=== PATIENT | female | born 1995 | race Hispanic/Latino ===

== ENCOUNTER 2019-12-24 19:11 | Emergency (ER) | payer SELFPAY ==
--- NOTE | 2019-12-24 20:45 | ER ---
[facility] Name: Rosenda Wilburn Age: 24 yrs Sex: Female : 1995 Arrival Date: 12/24/2019 Time: 19:21 Bed DIS1 Private MD: Diagnosis: Influenza due to identified novel influenza A virus Presentation: 12/23 19:26 Chief complaint: Spouse and/or significant other states: Fever and sore throat x 2 ca1 days. Daughter was positive with FLU. Pt is 9-10 wks. Coronavirus screen: The patient has NOT traveled to [place] in the past 14 days. The patient has NOT had contact with known and/or suspected case of Coronavirus. Ebola Screen: Patient negative for fever greater than or equal to 101.5 degrees Fahrenheit, and additional compatible Ebola Virus Disease symptoms Patient denies exposure to infectious person. Patient denies travel to an Ebola-affected area in the 21 days before illness onset. No symptoms or risks identified at this time. Initial Sepsis Screen: Does the patient meet any 2 criteria? No. Patient's initial sepsis screen is negative. Does the patient have a suspected source of infection? No. Patient's initial sepsis screen is negative. Risk Assessment: Do you want to hurt yourself or someone else? Patient reports no desire to harm self or others. Onset of symptoms was December 24, 2019. 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 - Social history:: Smoking status: Patient denies any tobacco usage or history of. - Family history:: not pertinent. - Hospitalizations: : No recent hospitalization is reported. Screenin:35 Abuse screen: Denies threats or abuse. Denies injuries from another. Nutritional rr5 screening: No deficits noted. Tuberculosis screening: No symptoms or risk factors identified. Fall Risk None identified. Total Cooper Fall Scale indicates No Risk (0-24 pts). Assessment: 19:35 General: Appears in no apparent distress. comfortable, Behavior is calm, cooperative, rr5 appropriate for age, Reports fever for. 19:35 Pain: Complains of pain in throat Pain does not radiate. Pain currently is 5 out of 10 rr5 on a pain scale. Quality of pain is described as aching, Pain began gradually, Is intermittent. Neuro: Level of Consciousness is awake, alert, obeys commands, Oriented to person, place, time, situation. Cardiovascular: Capillary refill < 3 seconds Patient's skin is warm and dry. Respiratory: Reports cough that is flu symptoms Airway is patent Respiratory effort is even, unlabored, Respiratory pattern is regular, symmetrical. GI: No signs and/or symptoms were reported involving the gastrointestinal system. : No signs and/or symptoms were reported regarding the genitourinary system. EENT: Throat is reddened with gag reflex present. Derm: Skin is intact, is healthy with good turgor, Skin temperature is warm. Musculoskeletal: Circulation, motion, and sensation intact. Capillary refill < 3 seconds. 20:34 Reassessment: Patient appears in no apparent distress at this time. Patient is alert, rr5 oriented x 3, equal unlabored respirations, skin warm/dry/pink. awaiting for flu result. 21:05 Reassessment: Patient appears in no apparent distress at this time. Patient is alert, rr5 oriented x 3, equal unlabored respirations, skin warm/dry/pink. discharge instruction given and explained without complaints made. Vital Signs: 19:26 BP 119 / 70; Pulse 120; Resp 16 S; Temp 98.8; Pulse Ox 98% on NC; Weight 62.14 kg (R); ca1 Height 5 ft. (152.40 cm) (R); 20:55 BP 115 / 75; Pulse 114; Resp 18; Temp 100.4; Pulse Ox 98% on R/A; rr5 19:26 Body Mass Index 26.76 (62.14 kg, 152.40 cm) ca1 ED Course: 19:21 Patient arrived in ED. jg7 19:31 Triage completed. ca1 19:33 Arm band placed on right wrist. ca1 19:35 Patient has correct armband on for positive identification. Bed in low position. Call rr5 light in reach. 19:47 Jalil Riley MD is Attending Physician. rn 19:56 Anthony Gauthier, RN is Primary Nurse. rr5 21:06 No provider procedures requiring assistance completed. Patient did not have IV access rr5 during this emergency room visit. Administered Medications: 20:55 Drug: Tylenol 650 mg Route: PO; rr5 21:08 Follow up: Response: No adverse reaction; Medication administered at discharge. rr5 Outcome: 20:45 Discharge ordered by . rn 21:06 Discharged to home ambulatory, with family. rr5 21:06 Condition: stable 21:06 Discharge instructions given to patient, family, Instructed on discharge instructions, follow up and referral plans. medication usage, Demonstrated understanding of instructions, Prescriptions given X 1. 21:08 Patient left the ED. rr5 Signatures: Jalil Riley MD MD rn Roque, Raymond, RN RN rr5 Joie Pennington RN RN Merry Montalvo jg7
--- NOTE | 2019-12-24 20:45 | EDPHYS ---
Physician Documentation [facility] Name: Rosenda Wilburn Age: 24 yrs Sex: Female : 1995 Arrival Date: 12/24/2019 Time: 19:21 Bed DIS1 Private MD: ED Physician Jalil Riley HPI: 12/23 19:53 This 24 yrs old Female presents to ER via Ambulatory with complaints of Flu rn Symptoms. 19:53 The patient or guardian reports cough, flu symptoms. Onset: The symptoms/episode rn began/occurred yesterday. Severity of symptoms: At their worst the symptoms were mild, in the emergency department the symptoms are unchanged. Modifying factors: The symptoms are alleviated by nothing, the symptoms are aggravated by nothing. Associated signs and symptoms: Pertinent positives: fever, rhinorrhea, sore throat. The patient has not experienced similar symptoms in the past. The patient has not recently seen a physician. Reports daughter diagnosed today with influenza A, clinic did not see her because she is and didn't see son because he is < 4 years old, so came here for concern that they have the flu. They all have cough/congestion/fever/decreased appetite. . 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 - Social history:: Smoking status: Patient denies any tobacco usage or history of. - Family history:: not pertinent. - Hospitalizations: : No recent hospitalization is reported. ROS: 19:53 Constitutional: + fever Eyes: Negative for injury, pain, redness, and discharge, Neck: rn Negative for injury, pain, and swelling, Cardiovascular: Negative for chest pain, palpitations, and edema, Respiratory: + cough, negative for sob Abdomen/GI: Negative for abdominal pain, nausea, vomiting, diarrhea, and constipation, : Negative for injury, bleeding, discharge, and swelling, MS/Extremity: Negative for injury and deformity, Skin: Negative for injury, rash, and discoloration, Neuro: Negative for numbness, tingling, and seizure. Exam: 19:53 Constitutional: This is a well developed, well nourished patient who is awake, alert, rn and in no acute distress. Ambulatory to room without difficulty or assistance. Head/Face: Normocephalic, atraumatic. Eyes: Pupils equal round and reactive to light, extra-ocular motions intact. Lids and lashes normal. Conjunctiva and sclera are non-icteric and not injected. Cornea within normal limits. Periorbital areas with no swelling, redness, or edema. ENT: MMM, no stridor or swelling, mild pharyngeal erythema Neck: + anterior cervical LAD, non-tender. No Meningismus. Cardiovascular: Tachycardic, regular, intact distal pulses Respiratory: Lungs have equal breath sounds bilaterally, clear to auscultation. No increased work of breathing, no retractions or nasal flaring. Abdomen/GI: soft, non-tender Skin: Warm, dry MS/ Extremity: Pulses equal, no cyanosis. Neurovascular intact. Full, normal range of motion. Equal circumference. Neuro: Awake and alert, GCS 15, oriented to person, place, time, and situation. Cranial nerves II-XII grossly intact. Motor strength 5/5 in all extremities. Sensory grossly intact. Cerebellar exam normal. Normal gait. Vital Signs: 19:26 BP 119 / 70; Pulse 120; Resp 16 S; Temp 98.8; Pulse Ox 98% on NC; Weight 62.14 kg (R); ca1 Height 5 ft. (152.40 cm) (R); 20:55 BP 115 / 75; Pulse 114; Resp 18; Temp 100.4; Pulse Ox 98% on R/A; rr5 19:26 Body Mass Index 26.76 (62.14 kg, 152.40 cm) ca1 MDM: 19:47 Patient medically screened. rn 20:42 Differential Diagnosis: Influenza Upper Respiratory Infection. Data reviewed: vital rn signs, nurses notes, lab test result(s), and as a result, I will discharge patient. Counseling: I had a detailed discussion with the patient and/or guardian regarding: the historical points, exam findings, and any diagnostic results supporting the discharge/admit diagnosis, lab results, radiology results, the need for outpatient follow up, to return to the emergency department if symptoms worsen or persist or if there are any questions or concerns that arise at home. Special discussion: I discussed with the patient/guardian in detail that at this point there is no indication for admission to the hospital. It is understood, however, that if the symptoms persist or worsen the patient needs to return immediately for re-evaluation. 20:42 ED course: Patient with influenza, after discussion given and category C, rn mother and I decided to use tamiflu. . 12/23 19:48 Order name: Flu; Complete Time: 20:42 rn 12/23 19:48 Order name: Strep; Complete Time: 20:42 rn 12/23 20:23 Order name: Throat Culture EDMS Administered Medications: 20:55 Drug: Tylenol 650 mg Route: PO; rr5 21:08 Follow up: Response: No adverse reaction; Medication administered at discharge. rr5 Disposition: 12/24/19 20:45 Discharged to Home. Impression: Influenza due to identified novel influenza A virus. - Condition is Stable. - Discharge Instructions: Influenza, Adult. - Prescriptions for Tamiflu 75 mg Oral Capsule - take 1 capsule by ORAL route every 12 hours for 5 days; 10 capsule. - Medication Reconciliation Form, Thank You Letter, Antibiotic Education, Prescription Opioid Use form. - Follow up: Private Physician; When: As needed; Reason: Recheck today's complaints, Re-evaluation by your physician. - Problem is new. - Symptoms have improved. Signatures: Dispatcher [employer] EDMS Jalil Riley MD MD rn Roque, Raymond, RN RN rr5 Joie Pennington RN RN ca1 Corrections: (The following items were deleted from the chart) 21:08 20:45 12/24/2019 20:45 Discharged to Home. Impression: Influenza due to identified rr5 novel influenza A virus. Condition is Stable. Forms are Medication Reconciliation Form, Thank You Letter, Antibiotic Education, Prescription Opioid Use. Follow up: Private Physician; When: As needed; Reason: Recheck today's complaints, Re-evaluation by your physician. Problem is new. Symptoms have improved. rn
[2019-12-24] MEDS ORDERED: ACETAMINOPHEN 325 MG TABLET ONE (20:52)
[2019-12-24 22:34] VITALS: O2SAT 98
[2019-12-24 22:36] VITALS: BP 115/75; TEMP 100.4
== END 2019-12-24 21:08 | disposition home or self-care (01) ==
LOC: ER 19:11
DX: O99.511 Diseases of the respiratory system complicating pregnancy, first trimester (principal); J10.1 Influenza due to other identified influenza virus with other respiratory manifestations; Z3A.00 Weeks of gestation of pregnancy not specified
CPT/HCPCS: 87070; 87081; 87804; 99283